=== PATIENT | female | born 1960 | race Caucasian/White ===

== ENCOUNTER 2024-11-24 13:13 | Outpatient (AMB) | payer MEDICAID, SELFPAY ==
--- NOTE | 2024-11-24 13:16 | A.OFFVIS_ITS ---
Vital Signs 11/24/24 13:21 Height 5 ft 3 in Weight 163 lb 2.273 oz BMI 28.9 BP 147/75 H Blood Pressure Location Lt brachial Position Sitting Pulse 76 Intake Visit Reasons: Vomiting Intake Note: Kriss presents in the office as a new patient for Vomiting. CC: She states that she made this appt a long time ago - she has been having issues with constipation and pains in the stomach. She states the constipation is on and off. Last week she threw up two or three times - she feels nauseous all the time in her stomach. She feels like her stomach does not digest what she eats. Rent And Housing Investigator Required: No Allergies Seasonal Allergies Allergy (Mild, Verified 11/24/24 13:22) Unknown HPI Comments Details: 64 y.o F with PMH of CAD s/p PCI 2023 on DAPT, peripheral vascular disease, who is here for GI issues as below. Pt reports intermittnet constipation and bloating assoc with nausea and vomiting. This occurs at least once a week. Has been taking stool softeners over the counter to help. Nausea and vomiting is only + when she is constipated. When she does throw up, notices food from over 6h ago. No abd pain otherwise. Pt has never had colon cancer screening. Pt used to smoke. No etOH. No fam hx of colon cancer. Review of Systems Const All systems reviewed & are unremarkable except as noted in HPI and below Physical Exam Exam Exam: No apparent distress Nonicteric Abdomen soft, nondistended Alert and oriented x3, normal gait Vital Signs: Last Vital Signs Pulse 76 11/24/24 13:21 BP 147/75 H 11/24/24 13:21 BMI result Body Mass Index 28.9 Assessment & Plan Assessment & Plan (1) Constipation: Code(s): K59.00 - Constipation, unspecified Category: Medical (2) Nausea & vomiting: Code(s): R11.2 - Nausea with vomiting, unspecified Category: Medical (3) Coronary artery disease: Code(s): I25.10 - Atherosclerotic heart disease of jamul coronary artery without angina pectoris Category: Medical (4) History of coronary artery stent placement: Code(s): Z95.5 - Presence of coronary angioplasty implant and graft Category: Medical (5) Antiplatelet or antithrombotic long-term use: Code(s): Z79.02 - USP (current) use of antithrombotics/antiplatelets Category: Medical Plan Overall sx consistent with CIC likely 2/2 lack of fiber in diet. Will also recommend addition of osmotic laxative PRN. Suspect N/V due to constipation however would not expect pt to throw food contents from over 6h ago. Will check GES to r/o delayed emptying. Pt also overdue for colo however had PCI 2023 and still on DAPT. Reports has not been able to see a instructor watch assembly in follow up since last year due to rescheduling appts. Plan: - Increase fiber intake and hydration - Take miralax if no BM for 2 days - Labs to r/o 2ndary causes of constipation - GES - If delayed emptying confirmed on GES, will favor motegrity which will also help with CIC - Pt strongly advised to follow up with cardiology at [facility] for clearance so a colo can be booked for screening. She is aware will need to HOLD brillinta x 5 days as long as okayed by cardiology. Follow up after colo Orders: Orders Transglutaminase IgA Today K59.00 - Constipation, unspecified NM gastric emptying study Today R11.2 - Nausea with vomiting, unspecified Complete Blood Count no Diff Today K59.00 - Constipation, unspecified Immunoglobulin A Today K59.00 - Constipation, unspecified TSH reflex Free T4 Today K59.00 - Constipation, unspecified Referrals GI Procedure Notification Z12.11 - Encounter for screening for malignant neoplasm of colon Medications: New polyethylene glycol 3350 (Miralax) 17 grams PO DAILY 238 grams 0RF peg 3350-electrolytes 236-22.74-6.74 -5.86 gram (Golytely) as per split prep instructions, until fecal effluent is clear 240 mL PO Q10M 4,000 mL 0RF colonoscopy Patient Instructions: - Start fiber supplement - take 1 tsp in 8 oz water daily and increase to 1 tbsp after 2 weeks - Take miralax if no bowel movement x 2 days - Blood work to be done today or sometime this week - A gastric emptying study will be set up through our Radiology department - Please make sure you see your heart doctor so we can set you up for the colonoscopy Coding Level of Care Code New Pt Level 5 ([id number]) Complex EM visit Add On G2211 Diagnoses Constipation K59.00 Nausea & vomiting R11.2 Coronary artery disease I25.10 History of coronary artery stent placement Z95.5 Antiplatelet or antithrombotic long-term use Z79.02
[2024-11-24 13:21] VITALS: BP 147/75; PULSE 76; BMI 28.9
--- OUTSIDE RECORDS SUMMARY | 2024-11-24 15:35 | XMS_ITS | Clinical Summary ---
Author Organization [facility] Address [address] [place] [address] Care Team Providers Care Farm Equipment Maintenance Supervisor Name Role Phone Chris Hopkins MD Primary Care Provider Allergies No known active allergies Medications Medication Sig Dispensed Refills Start Date End Date Status valACYclovir (VALTREX) 1000 MG tablet every 12 (twelve) hours. 0 Active IBUPROFEN PO ibuprofen 0 Active diphenhydrAMINE (Benadryl Allergy) 25 mg capsule Benadryl 0 Active amLODIPine-atorvasta tin (CADUET) 10-10 MG per tablet amlodipine 0 Active Active Problems No known active problems Family History Medical History Relation Name Comments Diabetes Mother Hyperlipidemia Mother Relation Name Status Comments Mother Social History Tobacco Use Types Packs/Day Years Used Date Smoking Tobacco: Never Smokeless Tobacco: Never Tobacco Cessation:Counseling Given: Not Answered Alcohol Use Standard Drinks/Week Comments Yes 0 (1 standard drink = 0.6 oz pur e alcohol) Sex and Gender Information Value Date Recorded Sex Assigned at Not on file Gender Identity Not on file Sexual Orientation Not on file Job Start Date Occupation Industry Not on file Not on file Not on file Last Filed Vital Signs Vital Sign Reading Time Taken Comments Blood Pressure - - Pulse - - Temperature - - Respiratory Rate - - Oxygen Saturation - - Inhaled Oxygen Concentration - - Weight 69.4 kg (153 lb) 04/17/2022 11:23 AM EST Height 160 cm (5' 3 ) 04/17/2022 11:23 AM EST Body Mass Index 27.1 04/17/2022 11:23 AM EST Plan of Treatment Health Maintenance Due Date Last Done Comments Hepatitis C Screening 1960 COVID-19 Vaccine (#1) 1960 Depression Screening 1972 BMI Counseling 1978 Preventative Health Evaluation 1978 DTap / Tdap / Td (1 - Tdap) 06/30/1979 Cervical Cancer Screening (P ap Smear) 1981 Colon Cancer Screening (Colonoscopy) 2005 Breast Cancer Screening (Mammogram) 2010 Shingrix-Zoster Vaccine (1 of 2) 2010 Influenza Vaccine (#1) 2024 Pneumococcal Vaccine (1 of 1 - PCV) 2025 RSV Adult > 60+ Yrs or Pregn ant (1 - 1-dose 75+ series) 06/30/2035 Hepatitis B Vaccines Aged Out No long er eligible based on patient's age to complete this topic Pneumococcal Vaccine Aged Out No long er eligible based on patient's age to complete this topic RSV Ped < 20 months Aged Out No longe r eligible based on patient's age to complete this topic Care Teams Farm Equipment Maintenance Supervisor Relationship Specialty Start Date End Date Chris Hopkins MD [address] [place] [address] [address] [place] [phone] PCP - General Geriatric Medicine 03/29/22
== END 2024-11-24 14:21 | disposition home or self-care (01) ==
LOC: HO.HGI 13:13
PROVIDERS: PCP Physician Assistant Medical; Visit Provider Internal Medicine
DX: K59.00 Constipation, unspecified (principal); R11.2 Nausea with vomiting, unspecified; I25.10 Atherosclerotic heart disease of native coronary artery without angina pectoris; Z95.5 Presence of coronary angioplasty implant and graft; Z79.02 Long term (current) use of antithrombotics/antiplatelets
CPT/HCPCS: 99204

== ENCOUNTER → 2024-11-24 13:13 | Outpatient (BNVA) | payer MEDICAID, SELFPAY | PROVIDERS: PCP Physician Assistant Medical; Visit Provider Internal Medicine | DX: K59.04 Chronic idiopathic constipation (principal); R11.2 Nausea with vomiting, unspecified; I25.10 Atherosclerotic heart disease of native coronary artery without angina pectoris; Z95.5 Presence of coronary angioplasty implant and graft; Z79.01 Long term (current) use of anticoagulants | CPT/HCPCS: 99202 ==

== ENCOUNTER 2024-12-10 13:13 | Outpatient (REF) | payer MEDICARE, MEDICAID, SELFPAY ==
[2024-12-10 14:23] LABS: Hematocrit 40.6 % (37.0-47.0); Hemoglobin 13.5 g/dl (12.0-16.0); Mean Corpuscular HGB Conc 33.3 g/dl (31.0-35.0); Mean Corpuscular Hemoglobin 29.4 pg (27.0-33.0); Mean Corpuscular Volume 88.5 fL (80.0-98.0); NRBC Abs Auto 0.000 X10*3/uL (0.0-0.012); NRBC Pct Auto 0.0 /100WBC (0.0-0.2); Platelet Count 241 X10*3/uL (160-400); Red Blood Count 4.59 X10*6/uL (4.20-5.50); White Blood Count 7.9 X10*3/uL (4.8-10.8)
--- OUTSIDE RECORDS SUMMARY | 2024-12-10 15:41 | XMS_ITS | Clinical Summary ---
Author Organization [facility] Address [address] [place] [address] Care Team Providers Care Chemistry Faculty Member Name Role Phone Chris Hopkins MD Primary [...] age to complete this topic Care Teams Chemistry Faculty Member Relationship Specialty Start Date End Date Chris Hopkins MD [address] [place] [address] [address] [place] [phone] PCP - General Geriatric Medicine 03/29/22
[2024-12-11 08:44] LABS: Immunoglobulin A 517 mg/dL (70-320)
== END 2024-12-10 13:14 | disposition home or self-care (01) ==
LOC: HO.LAB 13:13
PROVIDERS: PCP Physician Assistant Medical; Visit Provider Internal Medicine
DX: K59.00 Constipation, unspecified (principal)
CPT/HCPCS: 36415; 82784; 84443; 85027; 86364

== ENCOUNTER → 2025-01-01 08:04 | Outpatient (REF) | payer MEDICARE, MEDICAID, SELFPAY ==
--- NOTE | ~2025-01-01 | NM_ITS ---
EXAMINATION: RI RADIONUCLIDE SOLID FOOD GASTRIC EMPTYING 4-HOUR STUDY CLINICAL INFORMATION: R11.2 - Nausea with vomiting, unspecified COMPARISON: There are no prior studies available for comparison. TECHNIQUE: A standard meal consisting of 4 oz of Egg Beaters brand tagged with 0.76 mCi Tc-99m Sulfur Colloid, 7 oz water and 1 slice of toast with jelly was administered orally to the patient. Images were obtained using a dual head gamma camera in the anterior and posterior projections over of the stomach immediately post ingestion and at hourly intervals up to 4 hours post ingestion. The anterior and posterior counts at each time interval were averaged using the geometric mean and expressed as percentage of the immediate post ingestion counts. FINDINGS: There is visualization of activity in the stomach immediately post ingestion. As the study progresses, there is clearance of activity from the stomach and visualization of progressively increasing small bowel activity. By the end of the study, there is almost no retention noted in the stomach. Retention in the stomach at each time interval was: 1 hour 62% (normal 37%-90%) 2 hours 41% (normal 30%-60%) 3 hours 20% 4 hours 7% (normal 0%-10%) RI/RI gastric emptying study IMPRESSION: Normal 4-hour solid food gastric emptying study. For solid meal, rapid gastric emptying is less than 30% at 60 minutes. Delayed gastric emptying criteria is more than 60% remaining at 120 minutes or more than 10% at 240 minutes. The 4-hour value is the best discriminator of a normal or abnormal result). Gastric emptying study grading per JNMT Consensus Recommendations in 2008 (https://tech.snmjournals.org/content/36/1/44) Grade 1 (mild retention): 11-20% at 4h Grade 2 (moderate retention): 21-35% at 4h Grade 3 (severe retention): 36-50% at 4h Grade 4 (very severe retention): >50% retention at 4h Electronically signed by: Martínez Camacho MD 01/01/2025 01:37 PM EDT
--- OUTSIDE RECORDS SUMMARY | 2025-01-01 08:08 | XMS_ITS | Clinical Summary ---
Author Organization [facility] Address [address] [place] [address] Care Team Providers Care Airworthiness Safety Inspector Name Role Phone Chris Hopkins MD Primary [...] age to complete this topic Care Teams Airworthiness Safety Inspector Relationship Specialty Start Date End Date Chris Hopkins MD [address] [place] [address] [address] [place] [phone] PCP - General Geriatric Medicine 03/29/22
== END ==
LOC: HO.NUCMED 08:04
PROVIDERS: Visit Provider Internal Medicine
DX: R11.2 Nausea with vomiting, unspecified (principal)
CPT/HCPCS: 78264; A9541

== ENCOUNTER → 2025-01-01 08:57 | Outpatient (BNV) | payer MEDICARE, MEDICAID, SELFPAY | PROVIDERS: Visit Provider Radiology Diagnostic Radiology | DX: R11.2 Nausea with vomiting, unspecified (principal) | CPT/HCPCS: 78264 ==